=== PATIENT | male | born 1970 | race Caucasian/White ===

== ENCOUNTER 2022-01-02 05:56 | Emergency (ER) | payer OTHER, SELFPAY ==
[2022-01-02 05:58] VITALS: BP 156/88; PULSE 72; RESP 17; TEMP 36; O2SAT 97; BMI 28.5
--- NOTE | 2022-01-02 06:16 | EX.ED.DYSGE1 ---
HPI History of Present Illness Chief Complaint: Neuro S/Sx Informant: patient Onset/Context/Timing Onset: Weeks Context: Gradual Onset Timing: Waxes and wanes Narrative Narrative: Patient presents via EMS from work secondary to numbness and tingling sensation in his arms and legs. He states overall he just feels very weak and tired. This has been ongoing for several weeks but seems to be worsening. He denies chest pain or palpitations. No fever or chills. He did mention that he started taking several supplements approximately 10 days ago but states some of the symptoms of been ongoing before the onset of this. He is concerned that his symptoms may be secondary to high blood sugar. He is a family history of diabetes but no known personal history. PFSH PFSH Medical History no medical history no medical history Home Medications NK 01/02/22 [History Last Taken Unknown] Allergy/AdvReac Type Severity Reaction Status Date / Time No Known Allergies Allergy Verified 01/02/22 06:01 Surgical History Hx of cholecystectomy Social History Smoking Status: Never smoker ROS ROS ED Constitutional Constitutional ED: Denies chills or fever(s) Eyes Eyes: Denies change in vision ENT ENT ED: Denies sore throat Cardiovascular Cardiovascular: Denies chest pain Respiratory/Chest Respiratory/Chest: Denies cough or dyspnea Gastrointestinal Gastrointestinal: Denies abdominal pain, diarrhea, nausea or vomiting Genitourinary Genitourinary ED: Denies dysuria Musculoskeletal Musculoskeletal: Denies back pain Integumentary Denies rash Neurologic Neurologic: Reports paresthesias and weakness; Denies headache(s) Allergic/Immunologic Allergic/Immunologic ED: Denies urticaria EXAM Physical Exam Const Vital Signs: 01/02/22 05:58 Temperature 96.8 F L Temperature Source Temporal Pulse Rate 72 Respiratory Rate 17 Blood Pressure 156/88 H Blood Pressure Mean 110 Pulse Ox 97 Oxygen Delivery Method Room Air Positive well nourished and well developed General Appearance ED: well developed HEENT Reports moist mucous membranes Eyes PERRL and EOMs intact bilaterally Neck no lymphadenopathy and supple Chest Wall inspection of chest normal and palpation of chest normal Resp normal respiratory effort and clear to auscultation bilaterally Cardio regular rate and regular rhythm GI normal to inspection, nondistended, normoactive bowel sounds and non-tender Palpation: soft Extremity normal to inspection Neuro oriented x3 and no sensory deficits noted Sensorium / Orientation: alert Motor Exam: strength 5/5 throughout Psych mental status grossly normal Skin no rashes or lesions noted MDM MDM MDM Narrative Medical decision making narrative: Patient placed on pvc monitor. Lab work obtained. Lab Data Attestation: I reviewed the patient's lab results. Labs: Laboratory Results - last 24 hr 01/02/22 01/02/22 06:00 06:00 WBC 8.0 RBC 5.53 Hgb 16.3 Hct 47.3 MCV 85.5 MCH 29.5 MCHC 34.5 RDW Std Deviation 38.2 RDW Coeff of Donis 12.2 Plt Count 193 MPV 11.5 Immature Gran % (Auto) 0.500 Neut % (Auto) 55.8 Lymph % (Auto) 33.2 [place] % (Auto) 7.5 Eos % (Auto) 2.4 Baso % (Auto) 0.6 Absolute Neuts (auto) 4.5 Absolute Lymphs (auto) 2.67 Nucleated RBC % 0 Sodium 140 Potassium 4.2 Chloride 107 Carbon Dioxide 28.0 Anion Gap 5 BUN 27 H Creatinine 1.26 Estim Creat Clear Calc 80.64 Est GFR (MDRD) Af Amer 78 Est GFR (MDRD) Non-Af 64 BUN/Creatinine Ratio 21.4 H Glucose 101 Calcium 8.9 Magnesium 2.2 TSH 1.72 Treatment and Re-Evaluation Narrative: Patient's lab work is unremarkable other than BUN slightly elevated at 27. TSH and magnesium are normal. Blood sugar is normal at 101. Blood pressure is currently 150/80. I did encourage him to increase p.o. fluids over the next couple days. I also encouraged him to keep track of his blood pressure and review this with his PCP at his next visit. Discharge Plan Triage Chief Complaint: Neuro S/Sx ED Provider: Cathy Mohamud Dx/Rx/DC Orders Clinical Impression: Paresthesias, Hypertension Instructions: ED Hypertension, To Be Confirmed, ED Paraesthesias Prescriptions: No Action NK RF: 0 [facility] [[facility] Provider[facility] - 1-2 Weeks Disposition Disposition: Home, Self Care
[2022-01-02 06:20] VITALS: BMI 28.5
[2022-01-02 06:29] LABS: Absolute Lymphocyte Count 2.67 X10^3/uL (0.83-4.51); Absolute Neutrophil Count 4.5 X10^3/uL (2.0-7.7); Basophil# 0.05 X10^3/uL; Basophil% 0.6 % (0-1); Eosinophil# 0.19 X10^3/uL; Eosinophils% 2.4 % (0-5); Hematocrit 47.3 % (40-54); Hemoglobin 16.3 g/dL (13.0-16.5); Lymphocyte # 2.67 X10^3/ul (0.83-4.51); Lymphocyte % 33.2 % (19-41); Mean Corp Hgb Conc 34.5 g/dL (32-36); Mean Corpuscular Hgb 29.5 pg (27.0-32.0); Mean Corpuscular Volume 85.5 fL (80-94); Mean Platelet Vol. 11.5 fl (6.2-12.0); Monocyte% 7.5 % (0-10); NRBC Flagged by Analyzer 0 % (0-5); Neutrophil # 4.49 X10^3/uL (2.7-7.7); Neutrophil % 55.8 % (47-70); Platelet Count 193 K/mm3 (150-450); RBC Distribution Width CV 12.2 % (11.6-14.6); RBC Distribution Width SD 38.2 fl (35.1-43.9); Red Blood Count 5.53 M/mm3 (4.6-6.2)
[2022-01-02 06:53] LABS: Anion Gap 5 (5-15); BUN 27 mg/dL (7-18); BUN/Creat Ratio 21.4 RATIO (10-20); Calcium,Total 8.9 mg/dL (8.5-10.1); Chloride 107 mmol/L (98-107); Creatinine, Serum 1.26 mg/dL (0.70-1.30); EST Glomerular Filtration Rate 64 mL/min (>60); Est Glom Filt Rate - Afr Amer 78 mL/min (>60); Estimated Creatinine Clearance 80.64 ml/min; Glucose 101 mg/dL (74-106); Magnesium 2.2 mg/dL (1.6-2.6); Potassium 4.2 mmol/L (3.5-5.1); Sodium Level 140 mmol/L (136-145); Thyroid Stim Hormone (TSH) 1.72 uIU/mL (0.358-3.74)
[2022-01-02 07:22] VITALS: BP 150/80; PULSE 76; RESP 14; O2SAT 97
[2022-01-02 07:47] LABS: Hemoglobin A1c 5.1 % (3.8-5.6)
== END 2022-01-02 07:22 | disposition home or self-care (01) ==
PROVIDERS: Emergency Provider Emergency Medicine; Visit Provider Emergency Medicine
DX: R20.2 Paresthesia of skin (principal); I10 Essential (primary) hypertension; Z83.3 Family history of diabetes mellitus
CPT/HCPCS: 80048; 83036; 83735; 84443; 85025; 99285

== ENCOUNTER 2022-10-30 06:23 | Inpatient (IN) | payer OTHER, SELFPAY ==
[2022-10-30] VITALS (12 sets, daily range): BP systolic 127–184; BP diastolic 65–165; PULSE 72–102; RESP 14–18; TEMP 36.6–37.3; O2SAT 95–98; BMI 27.1; BMI 26.2
[2022-10-30 06:49] LABS: Absolute Lymphocyte Count 0.96 X10^3/uL (0.83-4.51); Basophil# 0.06 X10^3/uL; Basophil% 0.5 % (0-1); Eosinophil# 0.35 X10^3/uL; Eosinophils% 2.9 % (0-5); Hematocrit 48.3 % (40-54); Lymphocyte # 0.96 X10^3/ul (0.83-4.51); Mean Corp Hgb Conc 33.1 g/dL (32-36); Mean Corpuscular Hgb 28.9 pg (27.0-32.0); Mean Corpuscular Volume 87.2 fL (80-94); Mean Platelet Vol. 11.9 fl (6.2-12.0); Monocyte# 0.57 X10^3/uL; Monocyte% 4.8 % (0-10); NRBC Flagged by Analyzer 0 % (0-5); Neutrophil # 9.99 X10^3/uL (2.7-7.7); Neutrophil % 83.2 % (47-70); Platelet Count 184 K/mm3 (150-450); RBC Distribution Width CV 12.9 % (11.6-14.6); RBC Distribution Width SD 41.2 fl (35.1-43.9); Red Blood Count 5.54 M/mm3 (4.6-6.2)
[2022-10-30 07:06] LABS: Anion Gap 7 (5-15); BUN 25 mg/dL (7-18); Calcium,Total 8.7 mg/dL (8.5-10.1); Chloride 108 mmol/L (98-107); EST Glomerular Filtration Rate 83 mL/min (>60); Est Glom Filt Rate - Afr Amer 101 mL/min (>60); Estimated Creatinine Clearance 100.47 ml/min; Glucose 111 mg/dL (74-106); Potassium 5.2 mmol/L (3.5-5.1); Sodium Level 142 mmol/L (136-145)
--- NOTE | 2022-10-30 07:06 | EDS_ITS ---
HPI History of Present Illness Chief Complaint: Nausea/Vomiting/Diarrhea Informant: patient Narrative Narrative: Patient is a 52-year-old male with history of prior cholecystectomy and denies any other medical history presenting with epigastric abdominal pain and diarrhea. Patient states he works third shift. Earlier in the morning he just was not feeling good. He ate lunch around 3 AM. 1 hour later he started having pretty profuse diarrhea. He had 5 episodes. He states he has some dizziness and a mild headache. He has pain in his epigastric stomach region that also goes into his chest. He states his stomach feels like a knot. He states it radiates up the center of his chest and he feels that there is acid in the back of his throat. Has nausea but has not thrown up. Denies any sick contacts. Denies any fever. Denies any shortness of breath. Denies any recent travel or antibiotics. Denies any history of colitis or diverticulitis. Denies any black or blood in stool. No other complaints at this time. Did not take any medications prior to arrival. Patient states he had a sub earlier in the day. He does not think he ate anything that could have caused food poisoning. PFSH PFS Medical History no medical history Home Medications NK 01/02/22 [History Last Taken Unknown] Allergy/AdvReac Type Severity Reaction Status Date / Time No Known Allergies Allergy Verified 10/30/22 06:26 Surgical History Hx of cholecystectomy Social History Smoking Status: Never smoker ROS ROS ED Constitutional Constitutional ED: Denies chills, fever(s) or sweats Eyes Eyes: Denies diplopia ENT ENT ED: Denies rhinorrhea or sore throat Cardiovascular Cardiovascular: Reports chest pain; Denies palpitations Respiratory/Chest Respiratory/Chest: Denies cough or dyspnea Gastrointestinal Gastrointestinal: Reports abdominal pain, diarrhea and nausea; Denies melena or vomiting Genitourinary Genitourinary ED: Denies dysuria Musculoskeletal Musculoskeletal: Denies arthralgias or myalgias Integumentary Denies rash Neurologic Neurologic: Reports headache(s); Denies weakness Psychiatric Psychiatric: Denies anxiety EXAM Physical Exam Const Vital Signs: 10/30/22 06:24 10/30/22 09:32 10/30/22 11:24 Temperature 97.8 F Temperature Source Temporal Pulse Rate 72 77 78 Pulse Rate [1 (Initial Baseline)] Pulse Rate [2] Pulse Rate [3] Respiratory Rate 18 14 14 Respiratory Rate [1 (Initial Baseline)] Respiratory Rate [2] Respiratory Rate [3] Blood Pressure 132/71 H 128/74 H 158/82 H Blood Pressure [1 (Initial Baseline)] Blood Pressure [2] Blood Pressure [3] Blood Pressure Mean 91 92 107 Pulse Ox 97 98 97 Oxygen Delivery Method Room Air Room Air Room Air Oxygen Delivery Method [1 (Initial Baseline)] Oxygen Delivery Method [2] Oxygen Delivery Method [3] 10/30/22 12:30 10/30/22 15:12 10/30/22 15:24 Temperature 98.1 F Temperature Source Pulse Rate 102 H 78 Pulse Rate [1 (Initial Baseline)] 81 Pulse Rate [2] 85 Pulse Rate [3] 95 Respiratory Rate 16 Respiratory Rate [1 (Initial Baseline)] 16 Respiratory Rate [2] 16 Respiratory Rate [3] 16 Blood Pressure 135/76 H 165/76 H Blood Pressure [1 (Initial Baseline)] 158/100 H Blood Pressure [2] 161/120 H Blood Pressure [3] 184/165 H Blood Pressure Mean 95 Pulse Ox 98 Oxygen Delivery Method Room Air Oxygen Delivery Method [1 (Initial Baseline)] Room Air Oxygen Delivery Method [2] Room Air Oxygen Delivery Method [3] Room Air 10/30/22 15:34 10/30/22 15:39 10/30/22 15:44 Temperature Temperature Source Pulse Rate Pulse Rate [1 (Initial Baseline)] Pulse Rate [2] Pulse Rate [3] Respiratory Rate Respiratory Rate [1 (Initial Baseline)] Respiratory Rate [2] Respiratory Rate [3] Blood Pressure Blood Pressure [1 (Initial Baseline)] Blood Pressure [2] Blood Pressure [3] Blood Pressure Mean Pulse Ox Oxygen Delivery Method Room Air Room Air Room Air Oxygen Delivery Method [1 (Initial Baseline)] Oxygen Delivery Method [2] Oxygen Delivery Method [3] Positive well nourished and well developed General Appearance ED: well developed and NAD; Negative for pallor HEENT Reports moist mucous membranes Eyes PERRL and EOMs intact bilaterally Neck supple and no JVD Chest Wall inspection of chest normal and palpation of chest normal Resp normal respiratory effort and clear to auscultation bilaterally Cardio regular rate, regular rhythm and no murmurs GI normal to inspection, nondistended, normoactive bowel sounds Palpation: soft and tender epigastric (mild) Back/Spine no CVA tenderness Extremity normal to inspection General Extremety ED: Negative for edema General Extremity: Negative for edema Neuro oriented x3 Sensorium / Orientation: alert Motor Exam: Negative for general weakness Psych mental status grossly normal Skin no rashes or lesions noted General Skin Exam: Negative for jaundice or pallor MDM MDM MDM Narrative Medical decision making narrative: Patient is evaluated for abdominal pain, diarrhea and some slight chest pain. I suspect his chest pain is more referred cardiac however given that he is 52 we will also obtain a cardiac work-up including EKG and delta high-sensitivity troponin. Patient hemodynamically stable. Differential includes referred cardiac pain, gastroenteritis (there is a current outbreak of norovirus in the community), pancreatitis, colitis, diverticulitis less likely small bowel obstruction. Patient's symptoms are treated with IV fluids, Zofran and Pepcid. Will reevaluate. Patient has a mild leukocytosis with a white blood cell count of 12.0. Potassium and chloride are mildly elevated at 5.2 and 108 respectively. EKG does not show changes reflective of hyperkalemia. He has an elevated lipase of 1435. On repeat evaluation he states he is feeling a little better but still having pain/nausea. Patient be given a dose of morphine. Will obtain a CT for further evaluation of this pancreatitis. Patient reports he does not drink alcohol and does not take any medications the exact cause of pancreatitis is not clear. Lower suspicion for obstructing stone given normal AST, ALT and b ilirubin. CT shows fluid distention of the stomach and the duodenum up to the midportion of the third portion of the duodenum as it crosses to the aorta of the superior mesenteric artery. There is a visualized transition point. Nursing attempted on NG tube which patient did not tolerate. He states he felt uncomfortable. Patient is then given 2 mg IV Versed and again an NG tube is attempted. The tube is placed by myself. It goes proximally residential down and the patient starts gagging and rips it out. Patient then has an episode of vomiting. He does not have any hypoxia. In the meantime patient is discussed with GI, Dr. Reeder and surgery, Dr. Whitley. Dr. Whitley is concerned that if he needs surgery based on with obstruction as he will require Whipple which is outside of his scope of practice. Dr. Reeder is concerned that the area of concern is too far to reach with endoscopic. Decision is made to transfer the patient. Patient is requesting to go to [facility]. Patient is excepted by Dr. Andrew. Attempt to place NG with procedural sedation performed using etomidate. Patient again did not tolerate this. Attempt was canceled. Patient did not have any vomiting or other complications. Patient is now awaiting transfer. Will start on maintenance fluid. Lab Data Attestation: I reviewed the patient's lab results. Labs: Laboratory Results - last 24 hr 10/30/22 10/30/22 10/30/22 06:44 06:44 06:44 WBC 12.0 H RBC 5.54 Hgb 16.0 Hct 48.3 MCV 87.2 MCH 28.9 MCHC 33.1 RDW Std Deviation 41.2 RDW Coeff of Donis 12.9 Plt Count 184 MPV 11.9 Immature Gran % (Auto) 0.600 Neut % (Auto) 83.2 H Lymph % (Auto) 8.0 L Dickson % (Auto) 4.8 Eos % (Auto) 2.9 Baso % (Auto) 0.5 Absolute Neuts (auto) 10.0 H Absolute Lymphs (auto) 0.96 Nucleated RBC % 0 Sodium 142 Potassium 5.2 H Chloride 108 H Carbon Dioxide 27.0 Anion Gap 7 BUN 25 H Creatinine 1.00 Estim Creat Clear Calc 100.47 Est GFR (MDRD) Af Amer 101 Est GFR (MDRD) Non-Af 83 BUN/Creatinine Ratio 25.0 H Glucose 111 H Calcium 8.7 Total Bilirubin 0.80 Direct Bilirubin 0.14 AST 30 ALT 34 Alkaline Phosphatase 53 Troponin I High Sens 4 Total Protein 6.7 Albumin 3.7 Globulin 3.0 Lipase 1435 H Urine Color Urine Clarity Urine pH Ur Specific [place] Urine Protein Urine Glucose (UA) Urine Ketones Urine Occult Blood Urine Nitrite Urine Bilirubin Urine Urobilinogen Ur Leukocyte Esterase Urine RBC Urine WBC Ur Squamous Epith Cells Urine Bacteria Urine Mucus 10/30/22 10/30/22 08:35 09:15 WBC RBC Hgb Hct MCV MCH MCHC RDW Std Deviation RDW Coeff of Donis Plt Count MPV Immature Gran % (Auto) Neut % (Auto) Lymph % (Auto) [place]icks[place] % (Auto) Eos % (Auto) Baso % (Auto) Absolute Neuts (auto) Absolute Lymphs (auto) Nucleated RBC % Sodium Potassium Chloride Carbon Dioxide Anion Gap BUN Creatinine Estim Creat Clear Calc Est GFR (MDRD) Af Amer Est GFR (MDRD) Non-Af BUN/Creatinine Ratio Glucose Calcium Total Bilirubin Direct Bilirubin AST ALT Alkaline Phosphatase Troponin I High Sens 4 Total Protein Albumin Globulin Lipase Urine Color Yellow Urine Clarity Clear Urine pH 5.0 Ur Specific [place] 1.015 Urine Protein 15 H Urine Glucose (UA) Normal Urine Ketones Negative Urine Occult Blood Negative Urine Nitrite Negative Urine Bilirubin Negative Urine Urobilinogen Normal Ur Leukocyte Esterase Negative Urine RBC 0 SEEN Urine WBC 0 SEEN Ur Squamous Epith Cells 0 SEEN Urine Bacteria 0 SEEN Urine Mucus 0 SEEN Radiography Diagnostic Testing: Clinical Impression(s) from Imaging Studies Abdomen/Pelvis CT 10/30/22 07:40 IMPRESSION: Fluid distention of the stomach and the duodenum up to the mid portion of the third portion of the duodenum as it crosses between the aorta and superior mesenteric artery. Electronically Signed: Brian Edgar MD at 9:36 EST , Rhythm Strip Rhythm Strip: Sinus Rhythm Rate: 68 Ectopy: None EKG Initial EKG: Attestation: I personally reviewed and interpreted this EKG as follows: Interpretation: Sinus Rhythm Comments: Normal sinus rhythm at rate of 68 bpm Normal axis Normal intervals Normal ST segments Discharge Plan Triage Chief Complaint: Nausea/Vomiting/Diarrhea ED Provider: Arabella Kaye Dx/Rx/DC Orders Clinical Impression: SBO (small bowel obstruction), Acute pancreatitis, Diarrhea Prescriptions: No Action NK [facility] [Primary [facility] Provider] - Disposition Disposition: Acute Care Hospital Discharge Location: [facility]
[2022-10-30] MEDS: 0.9% Normal Saline 1,000 ML 1000 ML IV (07:13)
[2022-10-30] MEDS: Ondansetron 4 MG/2 ML Vial IV (07:13)
[2022-10-30] MEDS: Famotidine 200 MG/20 ML MDV 20 MG in 0.9% Normal Saline (Pres. free 8 ML 300 MG IV (07:20)
[2022-10-30 07:34] LABS: AST(SGOT) 30 U/L (15-37); Alanine Aminotransfer ALT/SGPT 34 U/L (16-61); Albumin, Serum 3.7 g/dL (3.2-5.0); Alkaline Phosphatase 53 U/L (45-117); Bilirubin, Direct 0.14 mg/dL (0.00-0.30); Lipase 1435 U/L (73-393); Protein, Total 6.7 g/dL (6.4-8.2); Troponin-I HS 4 pg/mL (3.0-78.0)
--- NOTE | 2022-10-30 07:40 | CT_ITS ---
STUDY: CT ABDOMEN AND PELVIS WITH CONTRAST REASON FOR EXAM: Male, 52 years old. Epigastric pain, elevated lipase. Diarrhea. RADIATION DOSAGE (If Supplied By Facility): CTDIvol = ( 16.72 ) mGy, DLP = ( 1114.34 ) mGycm TECHNIQUE: Transaxial images were obtained from the dome of the diaphragm to the symphysis pubis without oral contrast. IV 100mL [id number]-300 was administered. Sagittal and coronal images were reconstructed. Individualized dose optimization techniques were used for this CT. COMPARISON: None. FINDINGS: Minimal degree of increased linear markings at the lung bases suggestive of bilateral linear atelectasis. The visualized portions of the heart are within normal limits. There is decreased attenuation of the liver consistent with steatosis. The patient is status post cholecystectomy. Normal spleen. Normal pancreas. Normal bilateral adrenal glands. Normal right kidney. Multiple small nonobstructive left intrarenal calculi. Moderate to marked degree of fluid distention of the stomach with prominence of the second portion of the duodenum. The transition point is in the midportion of the third portion of the duodenum. Normal small intestine. There are scattered colonic diverticula consistent with diverticulosis. The appendix is visualized and appears normal. Normal abdominal aorta. Normal inferior vena cava. Normal retroperitoneum. Nonspecific increased markings in the mesenteric fat in the root of the mesentery. Normal urinary bladder. There are prostatic calcifications. There is a small umbilical hernia containing fat. There are mild degenerative changes of the visualized lumbar spine. CT/Abdomen/Pelvis W IV Cont ONLY IMPRESSION: Fluid distention of the stomach and the duodenum up to the mid portion of the third portion of the duodenum as it crosses between the aorta and superior mesenteric artery. Electronically Signed: Brian Edgar MD at 9:36 EST ,
[2022-10-30] MEDS: Morphine 4 MG/ML Syringe IV (08:17)
[2022-10-30 09:04] LABS: Bacteria 0 SEEN /hpf (None Seen); Mucous, Urine 0 SEEN /hpf (<or=2+); Red Blood Cells-Urine 0 SEEN /hpf (0-5); Squamous Epithelial Cells - UA 0 SEEN /hpf (0-5); White Blood Cells 0 SEEN /hpf (0-5)
[2022-10-30 09:09] LABS: Color, Urine Yellow (Yellow); Glucose, Dipstick Normal (Normal); Ketone-Dipstick Negative (Negative); Leukocyte Esterase-Dipstick Negative /ul (Negative); Nitrite-Dipstick Negative (Negative); Occult Blood-Urine Negative /ul (Negative); Protein-Dipstick 15 mg/dl (Negative); Specific Gravity, Urine 1.015 (1.002-1.030); Urine Bilirubin Dipstick Negative (Negative); Urine Clarity Clear (Clear); Urine Urobilinogen Normal (Normal)
[2022-10-30 09:45] LABS: Troponin-I HS 4 pg/mL (3.0-78.0)
[2022-10-30] MEDS: Oxymetazoline 0.05% 1 SPRAY SPRAY.BTL 2 SPRAY NASAL (10:16)
--- NOTE | 2022-10-30 12:04 | ED.RN ---
Pt. requested to speak with Dr. Kaye. Dr. Kaye notified.
[2022-10-30] MEDS: Midazolam 2 MG/2 ML Syringe IV (12:29)
--- NOTE | 2022-10-30 12:35 | ED.RN ---
Dr. Kaye attempted NG tube insertion after Versed given, pt. immediatly became restless and was unable to sit still for insertion stating I don't know if I can do this.
[2022-10-30] MEDS: Etomidate 20 MG/10 ML Vial 10 MG IV (15:27)
--- NOTE | 2022-10-30 15:42 | ED.RN ---
Attempt at NG tube instertion under concious sedation unsuccessful.
[2022-10-30] MEDS: 0.9% Normal Saline 1,000 ML 150 ML IV ×2 (18:12→20:43)
--- NOTE | 2022-10-30 19:17 | PCM.HP.STD ---
HPI - General General Date of Admission: 10/30/22 Date of Service: 10/30/22 Chief Complaint: Admission pending transfer to tertiary facility Nausea, diarrhea?1 day HPI Narrative MAZIN CAMACHO, is a 52 M who presents with the above. Patient has no past medical history, does not take any medications at baseline. He works the third shift and had earlier on eating in the morning at about 3 AM. He had profuse diarrhea 1 hour later. He has had about 5 episodes of diarrhea since. He had some epigastric discomfort/pain and stated that his abdomen felt like he was in knots. He had nausea but denies throwing up. He denies any use of alcohol or smoking. In the emergency room, his blood pressure was 132/71, heart rate of 72, respiratory rate was 18, temperature was 97.8 F, oxygen sat was 97% on room air. WBC count 12.2, hemoglobin 16.0, platelet count 184. Sodium 142, potassium 5.2, chloride 108, bicarbonate 27, BUN 25, creatinine 1.00. LFTs are unremarkable. Lipase is 1435. UA is unremarkable. COVID-19 rapid antigen test is negative. CT of the abdomen and pelvis shows fluid distention of stomach and duodenum up to the midportion of the third portion of the duodenal artery across the aorta and superior mesenteric artery. Since being in the emergency room, patient was kept n.p.o., IV fluids. Attempt at NG tube passage was unsuccessful. Patient's case was discussed by the emergency room physician with on-call surgeon and gastroenterology; the concern was patient needed further evaluation, of which it was recommended that patient be transferred to tertiary hospital. Patient has been accepted to the [facility]. Awaiting on bed. Patient had been in the ED more than 6 hours and hospital medicine was called to admit the patient compassionately pending bed availability. Patient voiced understanding that per previous discussions by previous physicians, he needs tertiary care and should he decompensate in the hospital, he is at risk of adverse complications. PFSH Medical History no medical history no medical history Home Medications NK 01/02/22 [History Last Taken Unknown] Allergy/AdvReac Type Severity Reaction Status Date / Time No Known Allergies Allergy Verified 10/30/22 06:26 Family History (Updated 10/30/22 @ 19:[address] Krystal Keen MD) Father COPD (chronic obstructive pulmonary disease) Mother Hypertension Surgical History Hx of cholecystectomy Social History (Updated 10/30/22 @ 19:[address] Krystal Keen MD) Smoking Status: Never smoker alcohol intake: never substance use type: does not use ROS ROS Narrative Constitutional: Denies: Anorexia, Chills, Fever, Night Sweats, Weight Change Eyes: Denies: Blurred vision, Cataracts, Conjunctivae Inflammation, Pain, Redness, Vision Change HEENT: Denies: Difficulty Hearing, Difficulty Swallowing, Head Aches, Hearing Changes, Sinus Congestion, Sinus Drainage Cardiovascular: Denies: Chest Pain, Orthopnea, Palpitations Respiratory: Denies: Cough, Shortness of breath at rest, Sputum production Gastrointestinal: See HPI Genitourinary: Denies: Dysuria Musculoskeletal: Denies: Joint Pain, Joint stiffness, Joint swelling, Joint Tenderness Skin: Denies: Rash, Wounds Neurological: Denies: Numbness, Tingling, Focal weakness Vital Signs Vital Signs Vital Signs: 10/30/22 06:24 10/30/22 09:32 10/30/22 11:24 Temperature 97.8 F Temperature Source Temporal Pulse Rate 72 77 78 Pulse Rate [1 (Initial Baseline)] Pulse Rate [2] Pulse Rate [3] Respiratory Rate 18 14 14 Respiratory Rate [1 (Initial Baseline)] Respiratory Rate [2] Respiratory Rate [3] Blood Pressure 132/71 H 128/74 H 158/82 H Blood Pressure [1 (Initial Baseline)] Blood Pressure [2] Blood Pressure [3] Blood Pressure Mean 91 92 107 Pulse Ox 97 98 97 Oxygen Delivery Method Room Air Room Air Room Air Oxygen Delivery Method [1 (Initial Baseline)] Oxygen Delivery Method [2] Oxygen Delivery Method [3] 10/30/22 12:30 10/30/22 15:12 10/30/22 15:24 Temperature 98.1 F Temperature Source Pulse Rate 102 H 78 Pulse Rate [1 (Initial Baseline)] 81 Pulse Rate [2] 85 Pulse Rate [3] 95 Respiratory Rate 16 Respiratory Rate [1 (Initial Baseline)] 16 Respiratory Rate [2] 16 Respiratory Rate [3] 16 Blood Pressure 135/76 H 165/76 H Blood Pressure [1 (Initial Baseline)] 158/100 H Blood Pressure [2] 161/120 H Blood Pressure [3] 184/165 H Blood Pressure Mean 95 Pulse Ox 98 Oxygen Delivery Method Room Air Oxygen Delivery Method [1 (Initial Baseline)] Room Air Oxygen Delivery Method [2] Room Air Oxygen Delivery Method [3] Room Air 10/30/22 15:34 10/30/22 15:39 10/30/22 15:44 Temperature Temperature Source Pulse Rate Pulse Rate [1 (Initial Baseline)] Pulse Rate [2] Pulse Rate [3] Respiratory Rate Respiratory Rate [1 (Initial Baseline)] Respiratory Rate [2] Respiratory Rate [3] Blood Pressure Blood Pressure [1 (Initial Baseline)] Blood Pressure [2] Blood Pressure [3] Blood Pressure Mean Pulse Ox Oxygen Delivery Method Room Air Room Air Room Air Oxygen Delivery Method [1 (Initial Baseline)] Oxygen Delivery Method [2] Oxygen Delivery Method [3] Weight Weight: 95.9 kg Body Mass Index (BMI) 27.1 Results Lab / Micro Data Result Diagrams: 10/30/22 06:44 10/30/22 06:44 Labs: Laboratory Results - last 24 hr 10/30/22 06:44: WBC 12.0 H, RBC 5.54, Hgb 16.0, Hct 48.3, MCV 87.2, MCH 28.9, MCHC 33.1, RDW Std Deviation 41.2, RDW Coeff of Donis 12.9, Plt Count 184, MPV 11.9, Immature Gran % (Auto) 0.600, Neut % (Auto) 83.2 H, Lymph % (Auto) 8.0 L, [place] % (Auto) 4.8, Eos % (Auto) 2.9, Baso % (Auto) 0.5, Absolute Neuts (auto) 10.0 H, Absolute Lymphs (auto) 0.96, Nucleated RBC % 0 10/30/22 06:44: Sodium 142, Potassium 5.2 H, Chloride 108 H, Carbon Dioxide 27.0, Anion Gap 7, BUN 25 H, Creatinine 1.00, Estim Creat Clear Calc 100.47, Est GFR (MDRD) Af Amer 101, Est GFR (MDRD) Non-Af 83, BUN/Creatinine Ratio 25.0 H, Glucose 111 H, Calcium 8.7 10/30/22 06:44: Total Bilirubin 0.80, Direct Bilirubin 0.14, AST 30, ALT 34, Alkaline Phosphatase 53, Troponin I High Sens 4, Total Protein 6.7, Albumin 3.7, Globulin 3.0, Lipase 1435 H 10/30/22 08:35: Urine Color Yellow, Urine Clarity Clear, Urine pH 5.0, Ur Specific [place] 1.015, Urine Protein 15 H, Urine Glucose (UA) Normal, Urine Ketones Negative, Urine Occult Blood Negative, Urine Nitrite Negative, Urine Bilirubin Negative, Urine Urobilinogen Normal, Ur Leukocyte Esterase Negative, Urine RBC 0 SEEN, Urine WBC 0 SEEN, Ur Squamous Epith Cells 0 SEEN, Urine Bacteria 0 SEEN, Urine Mucus 0 SEEN 10/30/22 09:15: Troponin I High Sens 4 Micro: Microbiology 10/30/22 12:21 Nasal Secretion SARS-CoV-2 Antigen (Rapid) - Final Rhythm Strip Rhythm Strip: Sinus Rhythm Rate: 68 Ectopy: None Radiology Impression Abdomen/Pelvis CT 10/30/22 07:40 IMPRESSION: Fluid distention of the stomach and the duodenum up to the mid portion of the third portion of the duodenum as it crosses between the aorta and superior mesenteric artery. Electronically Signed: Brian Edgar MD at 9:36 EST Reading Location ID and State: [facility] / [place] , Service support , Assessment & Plan Assessment/Plan (1) SBO (small bowel obstruction): PLAN: Plan 1. Acute episode of nausea and diarrhea, secondary to duodenal obstruction seen on CT scan of the abdomen Patient has been kept n.p.o., on IV fluids It was recommended for patient to be transferred to tertiary facility; patient is being admitted compassionately pending bed availability in [facility] Admit to MedSurg, IV fluids, general surgery and GI consult, NG tube 2. Hyperkalemia likely secondary to fluid shifts, will repeat BMP 3. Elevated lipase likely secondary to #1, likely to be acute pancreatitis No evidence of acute pancreatitis seen on CT of the abdomen and pelvis No history of alcohol, medication use We will trend 4. Elevated blood pressure secondary to pain/anxiety, No history of hypertension, patient presented with normal blood pressure in the ED Will continue to monitor Hydralazine as needed for SBP>160 5. DVT PPx- low risk, early ambulation recommended Charges/Coding Addendum Addendum: Total time spent: 75 minutes of which more > 50% was spent in reviewing patient's chart, laboratory investigations, imaging,discussing with emergency physician, taking history and physical examining patient and going over plan of care with patient. Visit Charges Inpatient E&M: 31064 Init Hosp L3
--- NOTE | 2022-10-30 19:49 | ED.RN ---
Dr. Keen instructed this RN that another NG tube should be placed for stomach decompression. Pt requested to be sedated for procedure. Dr. Chris TAMEZ gave verbal order for propofol. Pt was reviewing consent form while this RN was setting up fort procedure, and refused procedure. Dr. Keen notified. No new orders at this time.
[2022-10-30 20:29] LABS: Anion Gap 5 (5-15); BUN 19 mg/dL (7-18); BUN/Creat Ratio 23.3 RATIO (10-20); Calcium,Total 7.8 mg/dL (8.5-10.1); Chloride 114 mmol/L (98-107); Creatinine, Serum 0.81 mg/dL (0.70-1.30); EST Glomerular Filtration Rate 106 mL/min (>60); Est Glom Filt Rate - Afr Amer 128 mL/min (>60); Estimated Creatinine Clearance 124.03 ml/min; Glucose 109 mg/dL (74-106); Potassium 3.6 mmol/L (3.5-5.1); Sodium Level 144 mmol/L (136-145)
--- NOTE | 2022-10-30 21:23 | CON.PCM.SX_ITS ---
Assessment & Plan Assessment/Plan (1) Partial gastric outlet obstruction: PLAN: This is a 52-year-old, previously healthy, male who presents for several day history of upper abdominal discomfort, nausea, and presyncope who has evidence of partial gastric outlet obstruction and acute pancreatitis with ER work-up. In my independent review of the CT imaging, there appears to be some narrowing in both the second and third segments of the duodenum. Patient relates a history of unintentional weight loss over the past 6 to 8 months. Gi artur this history, differential includes possible occult neoplasm of the duodenum/biliary tree/pancreas, possible peptic ulcer disease, SMA syndrome, other? With this differential, I have recommended inquiring of our gastroenterologists for his input with this case. I am informed that he shared my opinion that patient was best evaluated and treated at a tertiary facility. Patient has been accepted to [facility], but we are awaiting a bed assignment. In the interim I have strongly urged the patient to try to be cooperative with staff and facilitate placement of a nasogastric tube for gastric decompression?both for decreasing gastric distention as well as for minimizing aspiration risk. I received follow-up that patient refused with a very limited attempt from nursing staff. Therefore, I have advised strict aspiration precautions and again urged for transfer to a facility with greater resources for an issue such as Mr. Camacho's. ? Recommend transfer to tertiary facility as soon as possible for further evaluation/treatment ? Strict n.p.o. with maintenance IV fluids ? Strict aspiration precautions with elevation of head of bed (2) Acute pancreatitis: HPI Consult Data Date of Consult: 10/30/22 HPI Narrative Reason for Consultation: Possible gastric outlet obstruction HPI Narrative: MAZIN CAMACHO, is a 52 M who presents to [facility] with complaints of an upset stomach nausea, and abdominal pain. He states that for the last several months he has noticed some large stools that were black in color. Along with this he notices that his stamina has been affected and that he is easily fatigued. He reports yesterday while at work he felt an upset stomach and nausea and attempted to go to the bathroom several times but had very little output. States that he felt like he was imminently about to pass out or throw up, but did neither. He has a history of unintentional weight loss?estimated at 25 to 30 pounds over the last 6 to 8 months. He admits that this is unusual. Patient ER work-up notable for CBC with differential that demonstrated normal hemoglobin at 16, and a mildly elevated WBC at 12.0. He also had evidence of pancreatitis with a lipase of 1435. CT imaging of the abdomen pelvis showed a distended stomach and narrowing of the duodenum in the third portion as it passed between the aorta and SMA. Upon being asked about patient and reviewing his imaging, I recommended placement of a nasogastric tube. Patient states that this was attempted multiple times in the ER, but was unsuccessful. He wishes to know when it may be considered futile and repeatedly references a deviated septum or the use of propofol for this purpose. Patient has a history of a cholecystectomy?representing his only prior surgical history. He reports that this was done in 2012 for gallstone pancreatitis, but then he relates that his study was done showing diminished function of his gallbladder (HIDA?). He had a history of upper scope at that time, but reports that he had both an EGD and C-scope approximately 10 years ago. He does confirm a history of heartburn. He denies any regular use of [id number] meds?including ibuprofen. He denies any history of ulcers. He does not drink nor smoke. There is no family history of GI cancers?including pancreatic cancer specifically. [facility] Medical History no medical history Home Medications NK 01/02/22 [History Last Taken Unknown] Allergy/AdvReac Type Severity Reaction Status Date / Time No Known Allergies Allergy Verified 10/30/22 06:26 Family History (Updated 10/30/22 @ 19:[address] Krystal Keen MD) Father COPD (chronic obstructive pulmonary disease) Mother Hypertension Surgical History Hx of cholecystectomy Social History (Updated 10/30/22 @ 19:[address] Krystal Keen MD) Smoking Status: Never smoker alcohol intake: never substance use type: does not use Physical Exam Const alert and oriented x3 Constitutional Narrative: Appears anxious and answers questioning tangentially Resp normal respiratory effort GI GI Narrative: Well-healed scars from cholecystectomy. Mildly distended. Soft but tender in the epigastrium. No rebound tenderness. Lab / Micro Data Result Diagrams: 10/30/22 06:44 10/30/22 19:59 Labs: Laboratory Results - last 24 hr 10/30/22 06:44: WBC 12.0 H, RBC 5.54, Hgb 16.0, Hct 48.3, MCV 87.2, MCH 28.9, MCHC 33.1, RDW Std Deviation 41.2, RDW Coeff of Donis 12.9, Plt Count 184, MPV 11.9, Immature Gran % (Auto) 0.600, Neut % (Auto) 83.2 H, Lymph % (Auto) 8.0 L, [place] % (Auto) 4.8, Eos % (Auto) 2.9, Baso % (Auto) 0.5, Absolute Neuts (auto) 10.0 H, Absolute Lymphs (auto) 0.96, Nucleated RBC % 0 10/30/22 06:44: Sodium 142, Potassium 5.2 H, Chloride 108 H, Carbon Dioxide 27.0, Anion Gap 7, BUN 25 H, Creatinine 1.00, Estim Creat Clear Calc 100.47, Est GFR (MDRD) Af Amer 101, Est GFR (MDRD) Non-Af 83, BUN/Creatinine Ratio 25.0 H, Glucose 111 H, Calcium 8.7 10/30/22 06:44: Total Bilirubin 0.80, Direct Bilirubin 0.14, AST 30, ALT 34, Alkaline Phosphatase 53, Troponin I High Sens 4, Total Protein 6.7, Albumin 3.7, Globulin 3.0, Lipase 1435 H 10/30/22 08:35: Urine Color Yellow, Urine Clarity Clear, Urine pH 5.0, Ur Specific [place] 1.015, Urine Protein 15 H, Urine Glucose (UA) Normal, Urine Ketones Negative, Urine Occult Blood Negative, Urine Nitrite Negative, Urine Bilirubin Negative, Urine Urobilinogen Normal, Ur Leukocyte Esterase Negative, Urine RBC 0 SEEN, Urine WBC 0 SEEN, Ur Squamous Epith Cells 0 SEEN, Urine Bacteria 0 SEEN, Urine Mucus 0 SEEN 10/30/22 09:15: Troponin I High Sens 4 10/30/22 19:59: Sodium 144, Potassium 3.6, Chloride 114 H, Carbon Dioxide 25.0, Anion Gap 5, BUN 19 H, Creatinine 0.81, Estim Creat Clear Calc 124.03, Est GFR (MDRD) Af Amer 128, Est GFR (MDRD) Non-Af 106, BUN/Creatinine Ratio 23.3 H, Glucose 109 H, Calcium 7.8 L Micro: Microbiology 10/30/22 12:21 Nasal Secretion SARS-CoV-2 Antigen (Rapid) - Final Rhythm Strip Rhythm Strip: Sinus Rhythm Rate: 68 Ectopy: None Radiology Impression Abdomen/Pelvis CT 10/30/22 07:40 IMPRESSION: Fluid distention of the stomach and the duodenum up to the mid portion of the third portion of the duodenum as it crosses between the aorta and superior mesenteric artery. Electronically Signed: Brian Edgar MD at 9:36 EST , Charges/Coding Visit Charges Inpatient E&M: 99463 Init Hosp L2
--- NOTE | 2022-10-30 21:46 | NURSING ---
Attempted to put an ng down pt in rt nares. Pt grabbed the ng and said no he cant do it. Pt refused to allow this nurse to do it again. Pt request peds tube. Informed pt no he has a long tosal and the ng tube would only be in his throat. Pt then is worried he will have his nose messed up and cant breath. Informed that he will be able to breath. Pt stated i just cant.
[2022-10-31 02:30] VITALS: BP 127/64; PULSE 72; RESP 15; TEMP 37; O2SAT 98
[2022-10-31] MEDS: 0.9% Normal Saline 1,000 ML 150 ML IV ×3 (03:27→17:42)
[2022-10-31 06:39] LABS: Absolute Lymphocyte Count 1.16 X10^3/uL (0.83-4.51); Absolute Neutrophil Count 3.6 X10^3/uL (2.0-7.7); Basophil# 0.03 X10^3/uL; Basophil% 0.5 % (0-1); Eosinophil# 0.23 X10^3/uL; Eosinophils% 4.1 % (0-5); Hemoglobin 14.6 g/dL (13.0-16.5); Lymphocyte # 1.16 X10^3/ul (0.83-4.51); Lymphocyte % 20.9 % (19-41); Mean Corp Hgb Conc 33.2 g/dL (32-36); Mean Corpuscular Volume 87.5 fL (80-94); Mean Platelet Vol. 11.2 fl (6.2-12.0); Monocyte# 0.48 X10^3/uL; Monocyte% 8.6 % (0-10); NRBC Flagged by Analyzer 0 % (0-5); Neutrophil # 3.63 X10^3/uL (2.7-7.7); Neutrophil % 65.4 % (47-70); Platelet Count 129 K/mm3 (150-450); RBC Distribution Width SD 41.3 fl (35.1-43.9); Red Blood Count 5.03 M/mm3 (4.6-6.2); White Blood Count 5.6 K/mm3 (4.4-11.0)
[2022-10-31 07:17] LABS: AST(SGOT) 17 U/L (15-37); Alanine Aminotransfer ALT/SGPT 23 U/L (16-61); Albumin, Serum 2.8 g/dL (3.2-5.0); Alkaline Phosphatase 46 U/L (45-117); Anion Gap 6 (5-15); BUN 19 mg/dL (7-18); BUN/Creat Ratio 21.3 RATIO (10-20); Calcium,Total 7.7 mg/dL (8.5-10.1); Chloride 114 mmol/L (98-107); Creatinine, Serum 0.89 mg/dL (0.70-1.30); EST Glomerular Filtration Rate 95 mL/min (>60); Est Glom Filt Rate - Afr Amer 115 mL/min (>60); Estimated Creatinine Clearance 112.88 ml/min; Globulin 2.7 g/dL (2.2-4.2); Glucose 103 mg/dL (74-106); Lipase 137 U/L (73-393); Potassium 3.7 mmol/L (3.5-5.1); Protein, Total 5.5 g/dL (6.4-8.2); Sodium Level 144 mmol/L (136-145)
[2022-10-31 08:21] VITALS: BP 134/75; PULSE 70; RESP 18; TEMP 37; O2SAT 98
--- NOTE | 2022-10-31 10:33 | PN.HOSP_ITS ---
Subjective Subjective Doing well, no issues overnight Objective Data Objective Data Vital Signs: Vital Signs Temp Pulse Resp BP Pulse Ox O2 Del Method 98.6 F 70 18 134/75 H 98 Room Air 10/31/22 08:21 10/31/22 08:21 10/31/22 08:21 10/31/22 08:21 10/31/22 08:21 10/31/22 08:22 Oxygen Delivery Method [3] Room Air Oxygen Delivery Method [2] Room Air Oxygen Delivery Method [1 ( Room Air Initial Baseline)] Oxygen Delivery Method Room Air Weight: 202 lb 3.716 oz Body Mass Index (BMI) 26.2 Intake & Output: Intake and Output for Last 24 Hours 10/30/22 10/31/22 11/01/22 03:59 03:59 03:59 Intake Total 3120.0 / 3120.0 980 / 980 Balance 3120.0 / 3120.0 980 / 980 Lab / Micro Data Result Diagrams: 10/31/22 06:26 10/31/22 06:26 Labs: Laboratory Results - last 24 hr 10/30/22 19:59: Sodium 144, Potassium 3.6, Chloride 114 H, Carbon Dioxide 25.0, Anion Gap 5, BUN 19 H, Creatinine 0.81, Estim Creat Clear Calc 124.03, Est GFR (MDRD) Af Amer 128, Est GFR (MDRD) Non-Af 106, BUN/Creatinine Ratio 23.3 H, Glucose 109 H, Calcium 7.8 L 10/31/22 06:26: WBC 5.6, RBC 5.03, Hgb 14.6, Hct 44.0, MCV 87.5, MCH 29.0, MCHC 33.2, RDW Std Deviation 41.3, RDW Coeff of Donis 13.0, Plt Count 129 L, MPV 11.2, Immature Gran % (Auto) 0.500, Neut % (Auto) 65.4, Lymph % (Auto) 20.9, [place] % (Auto) 8.6, Eos % (Auto) 4.1, Baso % (Auto) 0.5, Absolute Neuts (auto) 3.6, Absolute Lymphs (auto) 1.16, Nucleated RBC % 0 10/31/22 06:26: Sodium 144, Potassium 3.7, Chloride 114 H, Carbon Dioxide 24.0, Anion Gap 6, BUN 19 H, Creatinine 0.89, Estim Creat Clear Calc 112.88, Est GFR (MDRD) Af Amer 115, Est GFR (MDRD) Non-Af 95, BUN/Creatinine Ratio 21.3 H, Glucose 103, Calcium 7.7 L, Magnesium 2.0, Total Bilirubin 0.60, AST 17, ALT 23, Alkaline Phosphatase 46, Total Protein 5.5 L, Albumin 2.8 L, Globulin 2.7, Albumin/Globulin Ratio 1.0, Lipase 137 Micro: Microbiology 10/30/22 12:21 Nasal Secretion SARS-CoV-2 Antigen (Rapid) - Final Rhythm Strip Rhythm Strip: Sinus Rhythm Rate: 68 Ectopy: None Physical Exam Narrative General: Alert, Oriented x3, Cooperative, No apparent distress HEENT: Atraumatic, PERRLA, EOMI, Normocephalic Oral: Moist Mucosa Neck: Supple, No JVD Lungs: Clear to auscultation, Normal air movement, No rhonchi, No wheeze, No rales Cardiovascular: Regular rate, Regular Rhythm, Normal S1, Normal S2, No murmurs Abdomen: Soft, Non Tender, Non-Distended, No Hepato-splenomegaly Extremities: No edema, Capillary Refill Less than 3 Seconds Skin: No rashes, No breakdown Musculoskeletal: No Tenderness to Palpation of Joints or Extremities Neurological: Cranial nerves II-XII grossly intact, Motor Exam 5/5 strength throughout, Sensory exam intact to light touch and pain Psych/Mental Status: Normal Affect, Appropriate Assessment & Plan Assessment/Plan (1) SBO (small bowel obstruction): PLAN: Plan 1. Acute episode of nausea and diarrhea, secondary to duodenal obstruction seen on CT scan of the abdomen Patient has been kept n.p.o., on IV fluids It was recommended for patient to be transferred to tertiary facility Ambulating well but refuses NG tube Appreciate general surgery and GI assistance Lipase was transiently elevated given lack of inflammation and how quickly his lipase normalized unlikely to have been acute pancreatitis DVT: Ambulation Charges/Coding Visit Charges Inpatient E&M: 36060 Subs Hosp L2
[2022-10-31 14:27] VITALS: RESP 18
[2022-10-31 14:30] VITALS: BP 137/76; PULSE 69; RESP 18; TEMP 36.7; O2SAT 98
--- NOTE | 2022-10-31 18:51 | CON.PCM.GI_ITS ---
HPI Consult Data Date of Consult: 10/31/22 HPI Narrative Reason for Consultation: Partial small bowel obstruction HPI Narrative: MAZIN CAMACHO, is a 52 M who presents from home with worsening abdominal pain. He has a past medical history of prior cholecystectomy and denies any other medical history presenting with epigastric abdominal pain and diarrhea.? Patient states he works third shift.? Earlier in the morning he just was not feeling good.? He ate lunch around 3 AM.? 1 hour later he started having pretty profuse diarrhea.? He had 5 episodes.? He states he has some dizziness and a mild headache.? He has pain in his epigastric stomach region that also goes into his chest.? He states his stomach feels like a knot.? He states it radiates up the center of his chest and he feels that there is acid in the back of his throat.? He has nausea but has not thrown up.? Denies any sick contacts.? Denies any fever.? Denies any shortness of breath.? Denies any recent travel or antibiotics.? Denies any history of colitis or diverticulitis.? Denies any black or blood in stool.? No other complaints at this time.? Did not take any medic ations prior to arrival.? Patient states he had a sub earlier in the day.? He does not think he ate anything that could have caused food poisoning. CT of the abdomen and pelvis shows fluid distention of stomach and duodenum up to the midportion of the third portion of the duodenal artery across the aorta and superior mesenteric artery. Since being in the emergency room, patient was kept n.p.o., IV fluids. Attempt at NG tube passage was unsuccessful. Patient's case was discussed by the emergency room physician with on-call surgeon and gastroenterology; the concern was patient needed further evaluation, of which it was recommended that patient be transferred to tertiary hospital.? Patient has been accepted to the [facility].? Awaiting on bed [facility] Medical History no medical history Home Medications NK 01/02/22 [History Last Taken Unknown] Allergy/AdvReac Type Severity Reaction Status Date / Time No Known Allergies Allergy Verified 10/30/22 06:26 Family History (Updated 10/30/22 @ 19:[address] Krystal Keen MD) Father COPD (chronic obstructive pulmonary disease) Mother Hypertension Surgical History Hx of cholecystectomy Social History (Updated 10/30/22 @ 19:[address] Krystal Keen MD) Smoking Status: Never smoker alcohol intake: never substance use type: does not use ROS ROS Narrative Constitutional: Denies: Anorexia, Chills, Fever, Night Sweats, Weight Change Eyes: Denies: Blurred vision, Cataracts, Conjunctivae Inflammation, Pain, Redness, Vision Change HEENT: Denies: Difficulty Hearing, Difficulty Swallowing, Head Aches, Hearing Changes, Sinus Congestion, Sinus Drainage Cardiovascular: Denies: Chest Pain, Orthopnea, Palpitations Respiratory: Denies: Cough, Shortness of breath at rest, Sputum production Gastrointestinal: See HPI Genitourinary: Denies: Dysuria Musculoskeletal: Denies: Joint Pain, Joint stiffness, Joint swelling, Joint Te nderness Skin: Denies: Rash, Wounds Neurological: Denies: Numbness, Tingling, Focal weakness Physical Exam Narrative General: Alert, Oriented x3, Cooperative, No apparent distress HEENT: Atraumatic, PERRLA, EOMI, Normocephalic Oral: Moist Mucosa Neck: Supple, No JVD Lungs: Clear to auscultation, Normal air movement, No rhonchi, No wheeze, No rales Cardiovascular: Regular rate, Regular Rhythm, Normal S1, Normal S2, No murmurs Abdomen: Soft, Non Tender, Non-Distended, No Hepato-splenomegaly Extremities: No edema, Capillary Refill Less than 3 Seconds Skin: No rashes, No breakdown Musculoskeletal: No Tenderness to Palpation of Joints or Extremities Neurological: Cranial nerves II-XII grossly intact, Motor Exam 5/5 strength throughout, Sensory exam intact to light touch and pain Psych/Mental Status: Normal Affect, Appropriate Lab / Micro Data Result Diagrams: 10/31/22 06:26 10/31/22 06:26 Labs: Laboratory Results - last 24 hr 10/30/22 19:59: Sodium 144, Potassium 3.6, Chloride 114 H, Carbon Dioxide 25.0, Anion Gap 5, BUN 19 H, Creatinine 0.81, Estim Creat Clear Calc 124.03, Est GFR (MDRD) Af Amer 128, Est GFR (MDRD) Non-Af 106, BUN/Creatinine Ratio 23.3 H, Glucose 109 H, Calcium 7.8 L 10/31/22 06:26: WBC 5.6, RBC 5.03, Hgb 14.6, Hct 44.0, MCV 87.5, MCH 29.0, MCHC 33.2, RDW Std Deviation 41.3, RDW Coeff of Donis 13.0, Plt Count 129 L, MPV 11.2, Immature Gran % (Auto) 0.500, Neut % (Auto) 65.4, Lymph % (Auto) 20.9, [place] % (Auto) 8.6, Eos % (Auto) 4.1, Baso % (Auto) 0.5, Absolute Neuts (auto) 3.6, Absolute Lymphs (auto) 1.16, Nucleated RBC % 0 10/31/22 06:26: Sodium 144, Potassium 3.7, Chloride 114 H, Carbon Dioxide 24.0, Anion Gap 6, BUN 19 H, Creatinine 0.89, Estim Creat Clear Calc 112.88, Est GFR (MDRD) Af Amer 115, Est GFR (MDRD) Non-Af 95, BUN/Creatinine Ratio 21.3 H, Gluc ose 103, Calcium 7.7 L, Magnesium 2.0, Total Bilirubin 0.60, AST 17, ALT 23, Alkaline Phosphatase 46, Total Protein 5.5 L, Albumin 2.8 L, Globulin 2.7, Albumin/Globulin Ratio 1.0, Lipase 137 Rhythm Strip Rhythm Strip: Sinus Rhythm Rate: 68 Ectopy: None Assessment & Plan Assessment/Plan (1) SBO (small bowel obstruction): PLAN: Plan Acute episode of nausea and diarrhea, secondary to duodenal obstruction seen on CT scan of the abdomen. The differential diagnosis for this would include a superior mesenteric artery syndrome, local ischemia at the level of the second portion of the duodenum, adenocarcinoma of the duodenum and less likely inflammatory bowel disease of the duodenum. Patient has been kept n.p.o., on IV fluids It was recommended for patient to be transferred to tertiary facility; patient is being admitted compassionately pending bed availability in [facility] Elevated lipase likely secondary to acute pancreatitis as patient has had acute pancreatitis in the past. However there is no evidence of pancreatitis seen on CT scan. I suspect that he is just having local inflammation from the duodenum that caused his lipase to go up. No history of alcohol, medication use Charges/Coding Visit Charges Inpatient E&M: 45819 Init Hosp L3
[2022-10-31 20:15] VITALS: BP 125/70; PULSE 70; RESP 18; TEMP 36.7; O2SAT 97
[2022-11-01] MEDS: 0.9% Normal Saline 1,000 ML 150 ML IV ×2 (00:06→06:29)
[2022-11-01 00:09] VITALS: BP 123/67; PULSE 64; RESP 18; TEMP 36.6; O2SAT 98
[2022-11-01 06:34] VITALS: BP 128/65; PULSE 64; RESP 18; TEMP 36.8; O2SAT 99
[2022-11-01 07:55] VITALS: BP 121/68; PULSE 60; RESP 16; TEMP 36.6; O2SAT 99
--- NOTE | 2022-11-01 08:20 | RAD_ITS ---
STUDY: X-RAY - ABDOMEN/PELVIS REASON FOR EXAM: Male, 52 years old. bowel obst TECHNIQUE: Two AP supine views of the abdomen and pelvis. COMPARISON: None. FINDINGS: Normal visualized lung bases. There is an unremarkable bowel gas pattern. Small rounded calcific density projecting over the upper pole of the right kidney measures 3.5 mm. This could represent a kidney stone. Normal soft tissue structures. There are diffuse degenerative changes of the visualized lumbar spine. RAD/Abdomen Single View IMPRESSION: 1. Small rounded calcific density projecting over the upper pole of the right kidney measures 3.5 mm. This could represent a kidney stone. Electronically Signed: Paul Christianson MD at 9:35 EST ,
--- NOTE | 2022-11-01 09:49 | PCM.PN.SRG ---
Subjective Subjective States he has been having some flatus and liquid stools. Objective Data Objective Data Vital Signs: Vital Signs Temp Pulse Resp BP Pulse Ox O2 Del Method 97.9 F 60 16 121/68 H 99 Room Air 11/01/22 07:55 11/01/22 07:55 11/01/22 07:55 11/01/22 07:55 11/01/22 07:55 11/01/22 07:55 Oxygen Delivery Method [3] Room Air Oxygen Delivery Method [2] Room Air Oxygen Delivery Method [1 ( Room Air Initial Baseline)] Oxygen Delivery Method Room Air Weight: 199 lb 8.293 oz Body Mass Index (BMI) 26.2 Intake & Output: Intake and Output for Last 24 Hours 10/30/22 10/31/22 11/01/22 23:59 23:59 23:59 Intake Total 2120.0 / 2120.0 3090 / 3090 7.5 / 2026.5 Balance 2120.0 / 2120.0 3090 / 3090 2026. / 2026. Lab / Micro Data Result Diagrams: 10/31/22 06:26 10/31/22 06:26 Micro: Microbiology 10/30/22 12:21 Nasal Secretion SARS-CoV-2 Antigen (Rapid) - Final Radiography Diagnostic Testing: Radiology Impression KUB X-Ray 11/01/22 08:20 IMPRESSION: 1. Small rounded calcific density projecting over the upper pole of the right kidney measures 3.5 mm. This could represent a kidney stone. Electronically Signed: Paul Christianson MD at 9:35 EST Reading Location ID and State: [facility] / [place] , Service support , Rhythm Strip Rhythm Strip: Sinus Rhythm Rate: 68 Ectopy: None Physical Exam Const oriented x3 and no apparent distress Resp normal respiratory effort Cardio regular rate GI soft to palpation and non-tender GI Narrative: No peritoneal signs Inspection: Negative for abdominal distention Assessment & Plan Assessment/Plan (1) Partial gastric outlet obstruction: PLAN: Plan We will check KUB as patient states he is hungry to see if his stomach is any smaller in size. As patient currently does not have a bed for transfer to [facility]. Addendum: Unable to see the stomach on KUB definitively. We will plan to get a noncontrast CT to evaluate. If stomach is decompressed may let patient tried some clears if he tolerates may be able to go home on that as he likely will not get transferred to [facility] for several days. Patient is complaining that he is hungry and denies any abdominal pain/nausea currently. No home would send him home on Protonix 40 mg p.o. twice daily x1 week then daily Juliana Diaz M.D. Pager: [phone] [facility] [address] [place] [address], [facility], [address] [place] [address] Office: [phone] Charges/Coding Visit Charges Inpatient E&M: 30280 Subs Hosp L3
--- NOTE | 2022-11-01 10:04 | CT_ITS ---
INDICATION: Duodenal mass possible obstruction EXAMINATION: CT ABDOMEN AND PELVIS WITHOUT CONTRAST - CT Abdomen And Pelvis W/O Contrast Injection TECHNIQUE: Helically acquired images were obtained of the abdomen and pelvis without oral or IV contrast. A radiation dose optimization technique was used for this scan. IV Contrast dosage and agent: None. Oral contrast: None. COMPARISON: 10/30/2022. FINDINGS: LOWER CHEST: Minimal atelectatic changes in the left lower lobe. No cardiomegaly or pericardial effusion. LIVER: Homogeneous. No focal mass. GALLBLADDER AND BILIARY TREE: Nonvisualization of gallbladder which may be contracted or surgically removed. No intra- or extrahepatic biliary ductal dilation. PANCREAS: No focal cystic or solid mass. SPLEEN: Normal size without focal cystic or solid mass. ADRENAL GLANDS: No nodules. KIDNEYS AND URETERS: 2 small nonobstructing stones in the left kidney are again seen. No hydronephrosis. PERITONEUM: No ascites or free air. No other fluid collection. BOWEL: Stomach is normally distended. Normal caliber small bowel loops. The appendix appears to be within normal limits. No evidence of acute diverticulitis. No focal inflammatory change. LYMPH NODES: No enlarged mesenteric or retroperitoneal lymph nodes. VESSELS: Aorta is non-dilated. URINARY BLADDER: Mild thickening of the bladder wall probably due to underdistention. REPRODUCTIVE ORGANS: Prostatic calcifications. Trace of free fluid in the pelvis new since previous exam. ABDOMINAL WALL: Small umbilical hernia containing fat. BONES: Mild degenerative changes in the spine. CT/Abdomen/Pelvis without Cont IMPRESSION: 1. The stomach is no longer distended. No evidence of bowel obstruction. 2. Trace of free fluid in the pelvis new is previous exam. 3. Otherwise no focal acute inflammatory process. 4. Small nonobstructing stone in the left kidney without evidence of hydronephrosis. 5. Small umbilical hernia containing fat. Electronically Signed: Andrew Ricci MD at 13:59 EST ,
[2022-11-01 11:23] VITALS: BP 146/74; PULSE 66; RESP 16; TEMP 36.6; O2SAT 100
--- NOTE | 2022-11-01 13:39 | PCM.DC ---
Discharge Instructions Diet Discharge Diet: - (Do a clear/full liquid diet for the next 3 to 5 days and if tolerating it, can advance to a soft diet) Activity Discharge Activity: Return to Normal Activity Dressing / Incision Call your doctor if you observe: Fever of 101 or Higher, Shortness of breath, Dizziness, Fainting spells, Swelling in the ankles, Chest pain and Increased palpitations (irregular heartbeat) Follow Up Care Test Results: Test results from this visit will be discussed in further detail at your follow-up appointment, if applicable. Discharge Plan Admission Admit Date/Time: 10/30/22 18:53 Attending Provider: Lorenzo Gonsalves Primary Care Provider: [facility],[place] Consulting Providers: Carmelo Whitley ; Krystal Keen Discharge Orders/Prescriptions Prescriptions: New pantoprazole [Protonix] 40 mg tablet,delayed release (DR/EC) 40 mg PO DAILY Qty: 30 1RF Rx Instructions: Take 1 tablet twice a day for 7 days and then go to 1 tablet daily Referrals / Follow Up: Juliana Diaz MD [Med Staff - Active Staff] - Within 2 Weeks [facility] [Primary Care Provider] - Within 1 Week Disposition Disposition (needs filled in before D/C Order can be placed): Home, Self Care
--- NOTE | 2022-11-01 13:43 | DS.PCM_ITS ---
Providers Date of Admission: 10/30/22 Primary Care Physician: [facility] Consultations 10/30/22 20:31 Consult: Gastroenterology Routine Consulting Provider: Jordana Gastroenterpat Reason for Consult: Abnormal CT EMERGENT Consult: No Notified: Yes Date Notified: 10/30/22 Time Notified: 19:16 Method of Notification: Text Consult: General Surgery Routine Consulting Provider: Carmelo Whitley Reason for Consult: Abnormal CT EMERGENT Consult: No Notified: Yes Date Notified: 10/30/22 Time Notified: 19:16 Method of Notification: ED Physician Initiated Reason For Visit: ACUTE ABDOMEN Diagnosis Discharge Diagnosis (1) Partial gastric outlet obstruction: Status: Acute Code(s): K31.1 - Adult hypertrophic pyloric stenosis Medications at Discharge Home Medications pantoprazole 40 mg tablet,delayed release (Protonix) 40 mg PO DAILY #30 tabs 11/01/22 Hospital Course Operations None Procedures None Summary of Care Provided Minutes Spent on Discharge: 34 Hospital Course: Per HPI: MAZIN CAMACHO, is a 52 M who presents with the above.? Patient has no past medical history, does not take any medications at baseline.? He works the third shift and had earlier on eating in the morning at about 3 AM.? He had profuse diarrhea 1 hour later.? He has had about 5 episodes of diarrhea since.? He had some epigastric discomfort/pain and stated that his abdomen felt like he was in knots.? He had nausea but denies throwing up. He denies any use of alcohol or smoking. In the emergency room, his blood pressure was 132/71, heart rate of 72, respiratory rate was 18, temperature was 97.8 F, oxygen sat was 97% on room air.? WBC count 12.2, hemoglobin 16.0, platelet count 184.? Sodium 142, potassium 5.2, chloride 108, bicarbonate 27, BUN 25, creatinine 1.00.? LFTs are unremarkable.? Lipase is 1435.? UA is unremarkable.? COVID-19 rapid antigen test is negative. CT of the abdomen and pelvis shows fluid distention of stomach and duodenum up to the midportion of the third portion of the duodenal artery across the aorta and superior mesenteric artery. Since being in the emergency room, patient was kept n.p.o., IV fluids. Attempt at NG tube passage was unsuccessful. Patient's case was discussed by the emergency room physician with on-call surgeon and gastroenterology; the concern was patient needed further evaluation, of which it was recommended that patient be transferred to tertiary hospital.? Patient has been accepted to the [facility].? Awaiting on bed. Patient had been in the ED more than 6 hours and hospital medicine was called to admit the patient compassionately pending bed availability.? Patient voiced understanding that per previous discussions by previous physicians, he needs tertiary care and should he decompensate in the hospital, he is at risk of adverse complications. Hospital Course: 1. Acute nausea and vomiting secondary to a duodenal obstruction?52-year-old male presents with unintentional weight loss as well as nausea and vomiting and some abdominal pain. CT scan demonstrated an obstruction in the third portion of his duodenum unfortunately surgically we could not manage this here and her legislative advocate did not feel like he would be able to scope it appropriately so we initially tried to transfer to the [facility] however they did not have any beds and in the meantime his abdominal distention significantly improved as did his nausea. Repeat CT scan on the day of discharge showed that while being n.p.o. without an NG tube placement, the gastric distention resolved indicating a partial obstruction. He was trialed on clear liquid diets on the day of discharge which she tolerated and so I discussed with him the plan for discharge and he expressed understanding of the risk and benefits going home and would like to go home today. I do recommend that if this pain were to recur that he go directly to [facility] to obtain prompt intervention if possible. In the meantime I recommend that he follow-up with with general surgery as an outpatient and maintain himself on clear/full liquids for a few days if he tolerates that can advance to a soft diet and they will attempt to arrange EGD as an outpatient. Physical Exam Narrative General: Alert, Oriented x3, Cooperative, No apparent distress HEENT: Atraumatic, PERRLA, EOMI, Normocephalic Oral: Moist Mucosa Neck: Supple, No JVD Lungs: Clear to auscultation, Normal air movement, No rhonchi, No wheeze, No r ales Cardiovascular: Regular rate, Regular Rhythm, Normal S1, Normal S2, No murmurs Abdomen: Soft, Non Tender, Non-Distended, No Hepato-splenomegaly Extremities: No edema, Capillary Refill Less than 3 Seconds Skin: No rashes, No breakdown Musculoskeletal: No Tenderness to Palpation of Joints or Extremities Neurological: Cranial nerves II-XII grossly intact, Motor Exam 5/5 strength throughout, Sensory exam intact to light touch and pain Psych/Mental Status: Normal Affect, Appropriate Weight / BMI Weight Weight: 199 lb 8.293 oz Body Mass Index (BMI) 26.2 ABG / Lab / Microbiology Data Result Diagrams: 10/31/22 06:26 10/31/22 06:26 Microbiology: Microbiology 10/30/22 12:21 Nasal Secretion SARS-CoV-2 Antigen (Rapid) - Final Radiography Diagnostic Testing: Radiology Impression KUB X-Ray 11/01/22 08:20 IMPRESSION: 1. Small rounded calcific density projecting over the upper pole of the right kidney measures 3.5 mm. This could represent a kidney stone. Electronically Signed: Paul Christianson MD at 9:35 EST Reading Location ID and State: [address] [place] [address] , Service support , D/C Instructions Discharge Diet: - (Do a clear/full liquid diet for the next 3 to 5 days and if tolerating it, can advance to a soft diet) Call your doctor if you observe: Fever of 101 or Higher, Shortness of breath, Dizziness, Fainting spells, Swelling in the ankles, Chest pain and Increased palpitations (irregular heartbeat) Meaningful Use Info Meaningful Use Diagnoses (Choose all that apply): None applicable Discharge Plan Admission Admit Date/Time: 10/30/22 18:53 Attending Provider: Lorenzo Gonsalves Primary Care Provider: [facility],[place] Consulting Providers: Carmelo Whitley ; Krystal Keen Discharge Orders/Prescriptions Prescriptions: New pantoprazole [Protonix] 40 mg tablet,delayed release (DR/EC) 40 mg PO DAILY Qty: 30 1RF Rx Instructions: Take 1 tablet twice a day for 7 days and then go to 1 tablet daily Referrals / Follow Up: Juliana Diaz MD [Med Staff - Active Staff] - Within 2 Weeks [facility] [Primary Care Provider] - Within 1 Week Disposition Disposition (needs filled in before D/C Order can be placed): Home, Self Care Charges/Coding Visit Charges Inpatient E&M: 78911 Disch Hosp >30min
== END 2022-11-01 16:10 | disposition home or self-care (01) | DRG 380 ==
LOC: ED 16:19 → MS3 19:35
PROVIDERS: Admitting Provider Internal Medicine; Emergency Provider Emergency Medicine; Visit Provider Family Medicine
DX: K31.1 Adult hypertrophic pyloric stenosis (principal); K85.90 Acute pancreatitis without necrosis or infection, unspecified; K56.609 Unspecified intestinal obstruction, unspecified as to partial versus complete obstruction; E87.5 Hyperkalemia; K29.80 Duodenitis without bleeding; R63.4 Abnormal weight loss
CPT/HCPCS: 36415; 74018; 74176; 74177; 80048; 80053; 80076; 81001; 83690; 83735; 84484; 85025; 87811; 93005; 94668; 97802; 99252; 99285; J7030; Q9967; A4216; G0463; J2405; J3490